=== PATIENT | male | born 1965 | race African-American/Black ===

== ENCOUNTER 2017-08-16 10:45 | Day surgery (SDC) | payer OTHER ==
[~2017-08-16 10:45] MED LIST: Lactated Ringers 1,000 ML IV SCH; Lidocaine 2% 5 ML SDV ONE; Propofol 200 MG/20 ML SDV ONE; fentaNYL 100 MCG/2 ML SDV ONE
--- NOTE | 2017-08-16 11:12 | PCM.PREANE ---
Preanesthetic Assessment - Anesthesia/Transfusion/Family Hx Anesthesia History: Prior Anesthesia Without Reaction Family History of Anesthesia Reaction: No Transfusion History: No Prior Transfusion(s) Intubation History: Unknown - Review of Systems General: No Symptoms Pulmonary: No Symptoms Cardiovascular: No Symptoms Gastrointestinal: Abdominal Pain Neurological: No Symptoms Other: Reports: None - Physical Assessment Height: 1.68 m Weight: 92.986 kg ASA Class: 3 Mental Status: Alert & Oriented x3 Airway Class: Mallampati = 2 Dentition: Reports: Normal Dentition, Missing Tooth/Teeth (4-5 teeth) Thyro-Mental Finger Breadths: 3 Mouth Opening Finger Breadths: 3 ROM/Head Extension: Full Lungs: Clear to Auscultation, Normal Respiratory Effort Cardiovascular: Regular Rate, Regular Rhythm - Allergies Allergies/Adverse Reactions: Allergies Allergy/AdvReac Type Severity Reaction Status Date / Time No Known Allergies Allergy Verified 08/14/17 11:16 - Blood Blood Available: No - Anesthesia Plan Pre-Op Medication Ordered: None - Acknowledgements Anesthesia Type Planned: MAC Pt an Appropriate Candidate for the Planned Anesthesia: Yes Alternatives and Risks of Anesthesia Discussed w Pt/Guardian: Yes Pt/Guardian Understands and Agrees with Anesthesia Plan: Yes PreAnesthesia Questionnaire - Past Health History Medical/Surgical History: Denies Medical/Surgical History HEENT History: Reports: None Cardiovascular History: Reports: High Cholesterol, Hypertension, Other (See Below) (chest pain on/off at rest) Respiratory History: Reports: None Gastrointestinal History: Reports: None Genitourinary History: Reports: None Musculoskeletal History: Reports: Back Pain, Chronic, Other (See Below) (spinal stenosis, myofascial pain syndrome) Neurological History: Reports: None Psychiatric History: Reports: None Endocrine/Metabolic History: Reports: Diabetes, Type II, Obesity/BMI 30+ Other Endocrine/Metabolic History: type II diabetes, diet well controlled. Hematologic History: Reports: None Immunologic History: Reports: None Oncologic (Cancer) History: Reports: None Dermatologic History: Reports: None - Past Surgical History Head Surgeries/Procedures: Reports: None GI Surgical History: Reports: Colonoscopy, EGD (last year with colonoscopy) Other Musculoskeletal Surgeries/Procedures:: Orif rt. big toe fx. - SUBSTANCE USE Smoking Status *Q: Never Smoker Tobacco Use Within Last Twelve Months: No Second Hand Smoke Exposure: No Recreational Drug Use History: No - HOME MEDS Home Medications: Home Meds amLODIPine [Norvasc] 5 mg PO BEDTIME 12/20/15 [History] Doxycycline Hyclate 100 mg PO BID 08/14/17 [History] - CURRENT (IN HOUSE) MEDS Current Meds: Current Medications Lactated Ringer's (Ringers, Lactated) 1,000 mls @ 125 mls/hr IV ASDIRECTED NURA Discontinued Medications Fentanyl (Sublimaze) Confirm Administered Dose 100 mcg .ROUTE .STK-MED ONE Stop: 08/16/17 10:35 Lidocaine (Xylocaine-Mpf 2%) Confirm Administered Dose 5 ml .ROUTE .STK-MED ONE Stop: 08/16/17 10:35 Propofol (Diprivan 20 Ml) Confirm Administered Dose 400 mg .ROUTE .STK-MED ONE Stop: 08/16/17 10:35
--- NOTE | 2017-08-16 11:50 | PCM.OPNOTE ---
- General Post-Op/Procedure Note Date of Surgery/Procedure: 08/16/17 Operative Procedure(s): egd w bx Findings: see dict [id number] Pre Op Diagnosis: intestinal metaplasia at antrum Post-Op Diagnosis: Same Anesthesia Technique: Moderate Sedation Primary Surgeon: Michael Garcia Pathology: egd bx Complications: None Condition: Good
--- NOTE | 2017-08-16 12:24 | OR ---
SURGEON: Michael Garcia MD DATE OF PROCEDURE: 08/16/2017 PROCEDURE PERFORMED: Esophagogastroduodenoscopy with biopsy. FINDINGS: 1. The patient is easily sedated with DIE OPERATOR and Diprivan. The patient is soundly snoring. 2. The patient's oropharynx is grossly normal in appearance. Proximal esophagus and oropharynx are free of disease. GE junction at 40, demonstrated mild salmon-colored change consistent with moderate amount of acid reflux. No ulcer. No esophagitis observed. No bleeding. Stomach rugae is normal in appearance and antrum was slightly inflamed. Duodenum was grossly normal. Retroflexed back to the stomach to look at the fundus of stomach, and the patient may have a mild degree of hiatal hernia. The stomach has several areas look like it is a healed ulcer. Random biopsy done at antrum as it has intestinal metaplasia on last pathology report and no other biopsy report. Biopsy of the GE junction at 40 and sucked out air while scope pulling out. There was no food, bile, or blood observed during the whole procedure. PROCEDURE IN DETAIL: The patient was taken to the endoscopy room, and with the DIE OPERATOR, Diprivan was administered. A well-lubricated EGD scope was gently inserted through the oropharynx, down the esophagus, passing through the gastroesophageal junction, into the stomach. The mucosa was examined upon the passage. Any etiology will be noted. Once in the stomach, we continued to advance to the distal antrum, passed through the pylorus into the second portion of the duodenum. Again, the mucosa was examined for any abnormality and etiology. The scope was then retrieved back to the stomach and then retroflexed to look at the fundus of the stomach. If a biopsy was indicated, we will biopsy the antrum, body, and gastroesophageal junction. The air will be sucked out while the scope is retrieved to reduce the patient's discomfort. The patient tolerated the procedure well. There were no intraoperative complications. Dr. Garcia was present through the whole procedure. Prior to surgery, a time-out had been called, the patient identified, procedure identified and antibiotic administered. YVROSE / DANIELA /[id number]
[2017-08-16 13:38] VITALS: BP 117/78
== END 2017-08-16 12:30 | disposition home or self-care (01) ==
LOC: MW.SDS 10:45
PROVIDERS: ATTEND Surgery
DX: K29.50 Unspecified chronic gastritis without bleeding (principal); K20.9 Esophagitis, unspecified; I10 Essential (primary) hypertension; G89.29 Other chronic pain; M54.5 Low back pain; K40.90 Unilateral inguinal hernia, without obstruction or gangrene, not specified as recurrent; M47.816 Spondylosis without myelopathy or radiculopathy, lumbar region; M79.1 Myalgia; E11.9 Type 2 diabetes mellitus without complications; E78.00 Pure hypercholesterolemia, unspecified; E66.9 Obesity, unspecified; Z68.33 Body mass index [BMI] 33.0-33.9, adult; Z79.899 Other long term (current) drug therapy; Z98.890 Other specified postprocedural states
CPT/HCPCS: 43239; 82962; 93005; J3010; J7120; 00731; 88305; 88312; J2704

== ENCOUNTER 2018-11-09 12:30 | Emergency (ER) | payer OTHER ==
[2018-11-09] MEDS ORDERED: Aspirin 81 MG Tab.Chew PO ONE (12:37)
[2018-11-09] MEDS ORDERED: Sodium Chloride 0.9% 1,000 ML IV ONE (12:37)
[2018-11-09] MEDS ORDERED: Nitroglycerin 0.4 MG Tab.SL ONE (13:20)
[2018-11-09] MEDS: Nitroglycerin 0.4 MG Tab.SL SL PRN ×3 (13:22→13:33)
--- NOTE | 2018-11-09 13:23 | CR ---
INDICATION: Pain TECHNIQUE: Single view chest. FINDINGS: The lungs are clear. The heart, mediastinum and pulmonary vessels are of normal size. There is no evidence of pleural disease. IMPRESSION: Negative chest. Dictated by Daria Flores MD @ Nov 09 2018 1:22PM Signed by Dr. Daria Flores @ Nov 09 2018 1:22PM
[2018-11-09] MEDS ORDERED: Morphine 2 MG/ML Syringe IVPUSH ONE (13:34)
[2018-11-09 13:41] LABS: CHLORIDE,CL 103 mmol/L (98-107); SODIUM,NA 138 mmol/L (136-148)
[2018-11-09] MEDS ORDERED: Heparin Sodium 5,000 Units/ML Vial IVPUSH ONE (13:57)
[2018-11-09] MEDS ORDERED: Heparin Sod,Pork In 0.45% Nacl 25,000 UNIT/500 ML IV.SOLN IV SCH (14:00)
[2018-11-09] MEDS ORDERED: Nitroglycerin/D5W 25 MG/250 ML BOTTLE IV SCH (14:00)
[2018-11-09] MEDS ORDERED: Heparin Sod,Pork In 0.45% Nacl 25,000 UNIT/500 ML IV.SOLN IV ONE (14:03)
--- NOTE | 2018-11-09 14:05 | EDM.PDOC ---
ED HPI GENERAL MEDICAL PROBLEM - General Chief Complaint: Chest Pain Stated Complaint: SPOKE TO THE NURSE Time Seen by Provider: 11/09/18 12:47 Source of Information: Reports: Patient History Limitations: Reports: No Limitations - History of Present Illness INITIAL COMMENTS - FREE TEXT/NARRATIVE: HISTORY AND PHYSICAL: History of present illness: Patient is a 53-year-old male presents to the ED today with concern of 10 out of 10 midsternal chest pain. Patient describes the sensation as "needle". Patient states over the past 4 days he has had these symptoms off-and-on but they have generally lasted less than than [address] Patient states today that for one hour now he has had the pain and has not gone away. Patient states starting today the pain has gone into his right shoulder. Patient has not taking any medication at home. Patient does have a history of untreated hypertension, hyperlipidemia, and diabetes. Patient states he is not taking any medications for his symptoms. Patient denies fever, chills shortness of breath, or cough. Denies headache, neck stiff ness, change in vision, syncope, or near syncope. Denies nausea, vomiting, abdominal pain, diarrhea, constipation, or dysuria. Has not noted any blood in urine or stool. Patient has been eating and drinking appropriately. Patient has a history of untreated T2DM, hypertension, hyperlipidemia. Review of systems: As per history of present illness and below otherwise all systems reviewed and negative. Past medical history: As per history of present illness and as reviewed below otherwise noncontributory. Surgical history: As per history of present illness and as reviewed below otherwise noncontributory. Social history: See social history for further information Family history: As per history of present illness and as reviewed below otherwise noncontributory. Physical exam: General: Patient is alert, oriented, and in no acute distress. Patient sitting comfortably on exam table. HEENT: Atraumatic, normocephalic, pupils equal and reactive bilaterally, negative for conjunctival pallor or scleral icterus, mucous membranes moist, TMs normal bilaterally, throat clear, neck supple, nontender, trachea midline. No drooling or trismus noted. No meningeal signs. No hot potato voice noted. Lungs: Clear to auscultation, breath sounds equal bilaterally, chest nontender. Heart: S1S2, regular rate and rhythm without overt murmur Abdomen: Obese, soft, nondistended, nontender. Negative for masses or hepatosplenomegaly. Negative for costovertebral tenderness. Pelvis: Stable nontender. Genitourinary: Deferred. Rectal: Deferred. Skin: Intact, warm, dry. No lesions or rashes noted. Extremities: Atraumatic, negative for cords or calf pain. Neurovascular unremarkable. Neuro: Awake, alert, oriented. Cranial nerves II through XII unremarkable. Cerebellum unremarkable. Motor and sensory unremarkable throughout. Exam nonfocal. Notes: On exam, patient does appear to be quite comfortable. EKG performed upon arrival. Will do labs and imaging today. Nitro was given with decrease of symptoms. Morphine given with improvement of symptoms. Repeat EKG performed. Both EKG's were reviewed by myself as well as Dr. Gloria. Pending labs and imaging. 13:45: Positive troponin critical value called to nursing staff who relayed information to me. Called [facility] for transfer. There is no ground transfer available at this time. Flight transfer arranged. 13:55: Spoke to Dr. Rice who is accepting of patient transfer. Flight team arrived and patient transferred to [facility]. Diagnostics: CBC, CMP, UA, EKG, troponin, chest x-ray, lipase Therapeutics: Saline, nitroglycerin, aspirin, morphine, heparin Impression: Acute coronary syndrome Plan: 1. Transfer to [facility] to Dr. Rice via flight. Definitive disposition and diagnosis as appropriate pending reevaluation and review of above. Chest Pain Score (Numeric/FACES): 10 - Related Data Allergies Allergy/AdvReac Type Severity Reaction Status Date / Time No Known Allergies Allergy Verified 11/09/18 12:36 Home Meds: Home Meds . [No Known Home Meds] 11/09/18 [History] Past Medical History - Past Health History Medical/Surgical History: Denies Medical/Surgical History HEENT History: Reports: None Cardiovascular History: Reports: High Cholesterol, Hypertension, Other (See Below) Respiratory History: Reports: None Gastrointestinal History: Reports: None Genitourinary History: Reports: None Musculoskeletal History: Reports: Back Pain, Chronic, Other (See Below) Neurological History: Reports: None Psychiatric History: Reports: None Endocrine/Metabolic History: Reports: Diabetes, Type II, Obesity/BMI 30+ Other Endocrine/Metabolic History: type II diabetes, diet well controlled. Hematologic History: Reports: None Immunologic History: Reports: None Oncologic (Cancer) History: Reports: None Dermatologic History: Reports: None - Past Surgical History Head Surgeries/Procedures: Reports: None GI Surgical History: Reports: Colonoscopy, EGD Other Musculoskeletal Surgeries/Procedures:: Orif rt. big toe fx. Social & Family History - Family History Family Medical History: Noncontributory - Tobacco Use Smoking Status *Q: Never Smoker - Recreational Drug Use Recreational Drug Use: No ED ROS GENERAL - Review of Systems Review Of Systems: ROS reveals no pertinent complaints other than HPI. ED EXAM, GENERAL - Physical Exam Exam: See Below (see dictation) Course - Vital Signs Last Recorded V/S: Last Vital Signs Temp 36.3 C 11/09/18 12:34 Pulse 98 11/09/18 13:55 Resp 18 11/09/18 13:55 BP 148/91 H 11/09/18 13:55 Pulse Ox 96 11/09/18 13:55 - Orders/Labs/Meds Orders: Active Orders 24 hr Category Date Time Status EKG Documentation Completion [RC] STAT Care 11/09/18 12:37 Active UA RFX OSWALDO AND CULT IF INDIC [URIN] Stat Lab 11/09/18 12:37 Ordered Heparin Sod,Pork In 0.45% Nacl [Heparin-1/2Ns 25,000 Med 11/09/18 14:00 Active Units/500] 25,000 unit in 500 ml IV TITRATE Nitroglycerin/D5W [Nitroglycerin 25 MG/D5W 250 ML] 250 Med 11/09/18 14:00 Ordered ml IV TITRATE Medication Orders Nitroglycerin/Dextrose (Nitroglycerin 25 Mg/D5w 250 Ml) 250 mls @ 3 mls/hr IV TITRATE NURA Heparin Sodium/Sodium Chloride (Heparin-1/2ns 25,000 Units/500) 25,000 unit in 500 mls @ 22.861 mls/hr IV TITRATE NURA; Protocol Labs: Laboratory Tests 11/09/18 11/09/18 Range/Units 13:00 13:00 WBC 6.44 (4.0-11.0) K/uL RBC 5.17 (4.50-5.90) M/uL Hgb 15.3 (13.0-17.0) g/dL Hct 44.0 (38.0-50.0) % MCV 85.1 (80.0-98.0) fL MCH 29.6 (27.0-32.0) pg MCHC 34.8 (31.0-37.0) g/dL RDW Std Deviation 44.2 (28.0-62.0) fl RDW Coeff of Lona 14 (11.0-15.0) % Plt Count 239 (150-400) K/uL MPV 9.80 (7.40-12.00) fL Neut % (Auto) 75.0 (48.0-80.0) % Lymph % (Auto) 18.8 (16.0-40.0) % [place] % (Auto) 5.7 (0.0-15.0) % Eos % (Auto) 0.3 (0.0-7.0) % Baso % (Auto) 0.2 (0.0-1.5) % Neut # (Auto) 4.8 (1.4-5.7) K/uL Lymph # (Auto) 1.2 (0.6-2.4) K/uL [place] # (Auto) 0.4 (0.0-0.8) K/uL Eos # (Auto) 0.0 (0.0-0.7) K/uL Baso # (Auto) 0.0 (0.0-0.1) K/uL Nucleated RBC % 0.0 /100WBC Nucleated RBCs # 0 K/uL Sodium 138 (136-148) mmol/L Potassium 4.0 (3.5-5.1) mmol/L Chloride 103 (98-107) mmol/L Carbon Dioxide 25.1 (21.0-32.0) mmol/L BUN 11 (7.0-18.0) mg/dL Creatinine 1.3 (0.8-1.3) mg/dL Est Cr Clr Drug Dosing 55.03 mL/min Estimated GFR (MDRD) > 60.0 ml/min Glucose 223 H (74-106) mg/dL Calcium 8.2 L (8.5-10.1) mg/dL Total Bilirubin 0.7 (0.2-1.0) mg/dL AST 20 (15-37) IU/L ALT 29 (14-63) IU/L Alkaline Phosphatase 55 (46-116) U/L Troponin I 0.171 H* (0.000-0.056) ng/mL Total Protein 7.6 (6.4-8.2) g/dL Albumin 3.7 (3.4-5.0) g/dL Globulin 3.9 (2.6-4.0) g/dL Albumin/Globulin Ratio 0.9 (0.9-1.6) Lipase 288 (73-393) U/L Meds: Medications Generic Name Dose Route Start Last Admin Trade Name Freq PRN Reason Stop Dose Admin Nitroglycerin/Dextrose 250 mls @ 3 mls/hr 11/09/18 14:00 Nitroglycerin 25 Mg/D5w 250 Ml IV TITRATE NURA 5 MCG/MIN Heparin Sodium/Sodium Chloride 25,000 unit in 500 mls @ 22.861 mls/hr 14:00 Heparin-1/2ns 25,000 Units/500 IV TITRATE NURA Protocol 12 UNITS/KG/HR Discontinued Medications Generic Name Dose Route Start Last Admin Trade Name Aurora PRN Reason Stop Dose Admin Aspirin 324 mg 11/09/18 12:37 11/09/18 12:55 Aspirin PO 11/09/18 12:38 324 mg ONETIME ONE Administration Heparin Sodium (Porcine) 5,000 units 11/09/18 13:57 Heparin Sodium IVPUSH 11/09/18 13:58 ONETIME ONE Sodium Chloride 1,000 mls @ 999 mls/hr 11/09/18 12:37 11/09/18 13:04 Normal Saline IV 11/09/18 13:37 999 mls/hr STAT ONE Administration Morphine Sulfate 2 mg 11/09/18 13:34 11/09/18 13:46 Morphine IVPUSH 11/09/18 13:35 2 mg ONETIME ONE Administration Nitroglycerin 0.4 mg 11/09/18 13:15 11/09/18 13:33 Nitrostat SL 0.4 mg Q5M PRN Administration Chest Pain Nitroglycerin Confirm 11/09/18 13:20 11/09/18 13:26 Nitrostat Administered 11/09/18 13:21 Not Given Dose 0.4 mg .ROUTE .STK-MED ONE Departure - Departure Time of Disposition: 14:12 Disposition: DC/Tfer to Acute Hospital 02 Reason for Transfer *Q: Primary PCI Indicated Condition: Fair Clinical Impression: Acute coronary syndrome Referrals: PCP,Unknown [Primary Care Provider] - Forms: ED Department Discharge - My Orders Last 24 Hours: My Active Orders 11/09/18 14:00 Heparin Sod,Pork In 0.45% Nacl [Heparin-1/2Ns 25,000 Units/500] 25,000 unit in 500 ml IV TITRATE Nitroglycerin/D5W [Nitroglycerin 25 MG/D5W 250 ML] 250 ml IV TITRATE - Assessment/Plan Last 24 Hours: My Active Orders 11/09/18 14:00 Heparin Sod,Pork In 0.45% Nacl [Heparin-1/2Ns 25,000 Units/500] 25,000 unit in 500 ml IV TITRATE Nitroglycerin/D5W [Nitroglycerin 25 MG/D5W 250 ML] 250 ml IV TITRATE
[2018-11-09] MEDS ORDERED: Nitroglycerin/D5W 25 MG/250 ML BOTTLE ONE (14:11)
[2018-11-09 18:58] VITALS: BP 159/75
== END 2018-11-09 14:55 ==
LOC: MW.ED 12:30
DX: I24.9 Acute ischemic heart disease, unspecified (principal); I10 Essential (primary) hypertension; E11.9 Type 2 diabetes mellitus without complications
CPT/HCPCS: 71045; 80053; 83690; 84484; 85025; 93005; 96361; 96365; 96368; 96375; 96376; 99285; A9270; J1644; J2270; J3490; J7040; 99284

== ENCOUNTER 2018-12-24 15:17 | Emergency (ER) | payer OTHER ==
--- NOTE | 2018-12-24 15:44 | EDM.PDOC ---
ED HPI GENERAL MEDICAL PROBLEM - General Chief Complaint: Chest Pain Stated Complaint: CHEST PAINS Time Seen by Provider: 12/24/18 15:20 Source of Information: Reports: Patient History Limitations: Reports: No Limitations - History of Present Illness INITIAL COMMENTS - FREE TEXT/NARRATIVE: Presents reporting left precordial chest pain started 1 hour prior to arrival. No radiation of the pain to the neck back shoulder or arm. At the time of my examination the patient had no pain. No associated nausea, shortness breath, sweating or lightheadedness. The patient states that last month he was here for chest pain and ended up in [place] with 2 stents placed. He has a history of hypertension, diabetes, dyslipidemia and obesity. He did not take any nitroglycerin or other medications for his chest pain. - Related Data Allergies Allergy/AdvReac Type Severity Reaction Status Date / Time No Known Allergies Allergy Verified 12/24/18 15:19 Home Meds: Home Meds Clopidogrel [Plavix] 12/24/18 [History] Isosorbide Dinitrate mg PO DAILY 12/24/18 [History] Lisinopril [Zestril] 12/24/18 [History] Metoprolol Tartrate [Lopressor] 12/24/18 [History] atorvaSTATin [Lipitor] 12/24/18 [History] metFORMIN [Glucophage XR] 12/24/18 [History] Past Medical History - Past Health History Medical/Surgical History: Denies Medical/Surgical History HEENT History: Reports: None Cardiovascular History: Reports: High Cholesterol, Hypertension, Stents, Other ( See Below) Respiratory History: Reports: None Gastrointestinal History: Reports: None Genitourinary History: Reports: None Musculoskeletal History: Reports: Back Pain, Chronic, Other (See Below) Neurological History: Reports: None Psychiatric History: Reports: None Endocrine/Metabolic History: Reports: Diabetes, Type II, Obesity/BMI 30+ Other Endocrine/Metabolic History: type II diabetes, diet well controlled. Hematologic History: Reports: None Immunologic History: Reports: None Oncologic (Cancer) History: Reports: None Dermatologic History: Reports: None - Past Surgical History Head Surgeries/Procedures: Reports: None GI Surgical History: Reports: Colonoscopy, EGD Other Musculoskeletal Surgeries/Procedures:: Orif rt. big toe fx. Social & Family History - Family History Family Medical History: Noncontributory - Tobacco Use Smoking Status *Q: Never Smoker - Caffeine Use Caffeine Use: Reports: None - Recreational Drug Use Recreational Drug Use: No ED ROS GENERAL - Review of Systems Review Of Systems: ROS reveals no pertinent complaints other than HPI. ED EXAM, GENERAL - Physical Exam Exam: See Below Exam Limited By: No Limitations General Appearance: Alert, No Apparent Distress Ears: Normal External Exam Nose: Normal Inspection Throat/Mouth: Normal Inspection Head: Atraumatic, Normocephalic Neck: Normal Inspection Respiratory/Chest: No Respiratory Distress, Lungs Clear, Normal Breath Sounds Cardiovascular: Normal Peripheral Pulses, Regular Rate, Rhythm, No Edema, No Murmur Peripheral Pulses: 3+: Radial (L), Radial (R), Posterior Tibial (L), Posterior Tibial (R), Dorsalis Pedis (L), Dorsalis Pedis (R) GI/Abdominal: Normal Bowel Sounds, Soft, Non-Tender, No Distention Back Exam: Normal Inspection, Full Range of Motion Extremities: Normal Inspection, Normal Range of Motion Neurological: Alert, Oriented, Normal Cognition Psychiatric: Normal Affect, Normal Mood Skin Exam: Warm, Dry, Intact, Normal Color, No Rash Lymphatic: No Adenopathy Course - Vital Signs Last Recorded V/S: Last Vital Signs Temp 36.4 C 12/24/18 15:23 Pulse 63 12/24/18 15:23 Resp 16 12/24/18 15:23 BP 153/78 H 12/24/18 15:23 Pulse Ox 94 L 12/24/18 15:23 - Orders/Labs/Meds Labs: Laboratory Tests 12/24/18 12/24/18 Range/Units 15:40 15:40 WBC 5.75 (4.0-11.0) K/uL RBC 4.85 (4.50-5.90) M/uL Hgb 14.2 (13.0-17.0) g/dL Hct 41.7 (38.0-50.0) % MCV 86.0 (80.0-98.0) fL MCH 29.3 (27.0-32.0) pg MCHC 34.1 (31.0-37.0) g/dL RDW Std Deviation 43.5 (28.0-62.0) fl RDW Coeff of Lona 14 (11.0-15.0) % Plt Count 213 (150-400) K/uL MPV 10.70 (7.40-12.00) fL Add Manual Diff YES Neutrophils % (Manual) 46 L (48.0-80.0) % Lymphocytes % (Manual) 32 (16.0-40.0) % Monocytes % (Manual) 18 H (0.0-15.0) % Eosinophils % (Manual) 3 (0.0-7.0) % Basophils % (Manual) 1 (0.0-1.5) % Nucleated RBC % 0.0 /100WBC Absolute Seg Neuts 2.6 (1.4-5.7) Lymphocytes # (Manual) 1.8 (0.6-2.4) Monocytes # (Manual) 1.0 H (0.0-0.8) Eosinophils # (Manual) 0.2 (0.0-0.7) Basophils # (Manual) 0.1 (0.0-0.1) Nucleated RBCs # 0 K/uL Reactive Lymphocytes FEW Sodium 138 (136-148) mmol/L Potassium 4.2 (3.5-5.1) mmol/L Chloride 103 (98-107) mmol/L Carbon Dioxide 27.4 (21.0-32.0) mmol/L BUN 12 (7.0-18.0) mg/dL Creatinine 0.9 (0.8-1.3) mg/dL Est Cr Clr Drug Dosing 79.48 mL/min Estimated GFR (MDRD) > 60.0 ml/min Glucose 99 (74-106) mg/dL Calcium 8.9 (8.5-10.1) mg/dL Total Bilirubin 0.5 (0.2-1.0) mg/dL AST 17 (15-37) IU/L ALT 26 (14-63) IU/L Alkaline Phosphatase 43 L (46-116) U/L Troponin I < 0.050 (0.000-0.056) ng/mL Total Protein 7.5 (6.4-8.2) g/dL Albumin 4.0 (3.4-5.0) g/dL Globulin 3.5 (2.6-4.0) g/dL Albumin/Globulin Ratio 1.1 (0.9-1.6) - Re-Assessments/Exams Free Text/Narrative Re-Assessment/Exam: 12/24/18 16:55 Discussion with the patient. He states he just came here to get checked out, he does not want to be admitted. He has cardiac rehabilitation tomorrow. He he doesn't know his medications but he states he didn't not receive any medication put under his tongue that he knows of. His regular medications he takes every morning. He has no chest pain since being in the ER. Departure - Departure Time of Disposition: 16:57 Disposition: Home, Self-Care 01 Condition: Good Clinical Impression: Angina pectoris Referrals: [facility] [Outside] Melia Shah PA [[facility]] - Forms: ED Department Discharge Additional Instructions: 1. Follow-up with your primary provider. 2. Return promptly for chest pain, shortness of breath, sweating or nausea.
[2018-12-24 16:12] LABS: CHLORIDE,CL 103 mmol/L (98-107); SODIUM,NA 138 mmol/L (136-148)
[2018-12-24 17:24] VITALS: BP 134/77
== END 2018-12-24 17:12 | disposition home or self-care (01) ==
LOC: MW.ED 15:17
DX: I20.9 Angina pectoris, unspecified (principal); E78.00 Pure hypercholesterolemia, unspecified; I10 Essential (primary) hypertension; E11.9 Type 2 diabetes mellitus without complications; Z79.01 Long term (current) use of anticoagulants; Z79.899 Other long term (current) drug therapy; Z79.84 Long term (current) use of oral hypoglycemic drugs
CPT/HCPCS: 36415; 80053; 84484; 85025; 93005; 99283; 99285-25

== ENCOUNTER 2019-02-16 19:53 | Observation (INO) | payer OTHER ==
[2019-02-16] MEDS ORDERED: Sodium Chloride 0.9% 10 ML Syringe FLUSH PRN (19:54)
[2019-02-16] MEDS ORDERED: Sodium Chloride 0.9% 2.5 ML Syringe FLUSH PRN (19:54)
--- NOTE | 2019-02-16 20:06 | EDM.PDOC ---
ED HPI GENERAL MEDICAL PROBLEM - General Chief Complaint: Chest Pain Stated Complaint: NURSE SPOKE TO PT Time Seen by Provider: 02/16/19 20:04 Source of Information: Reports: Patient History Limitations: Reports: No Limitations - History of Present Illness INITIAL COMMENTS - FREE TEXT/NARRATIVE: HISTORY AND PHYSICAL: History of present illness: Patient is a 54-year-old male who presents to the emergency room with complaints of right-sided chest pain. Patient reports that he did have an SD October 2018 which she was transferred to [place] in [place]. Did have stent placement. Has been doing cardiac rehabilitation at our facility and has seen our debt collection specialist. He states he has several medications at home and believes he has nitroglycerin available to him, although did not take this prior to arrival. Patient denies any fever, chills, headache, change in vision, syncope or near syncope. Denies any diaphoresis, back pain, shortness of breath or cough. Denies any abdominal pain, nausea, vomiting, diarrhea, constipation or dysuria. Has not noted any blood in urine or stool. Patient has been eating and drinking appropriately. Review of systems: As per history of present illness and below otherwise all systems reviewed and negative. Past medical history: As per history of present illness and as reviewed below otherwise noncontributory. Surgical history: As per history of present illness and as reviewed below otherwise noncontributory. Social history: See social history for further information Family history: As per history of present illness and as reviewed below otherwise noncontributory. Physical exam: General: Well-developed and well-nourished 54-year-old -[place] male. Alert and oriented. Nontoxic appearing and in no acute distress. HEENT: Atraumatic, normocephalic, pupils equal and reactive bilaterally, negative for conjunctival pallor or scleral icterus, mucous membranes moist, trachea midline. No drooling or trismus noted. No meningeal signs. No hot potato voice noted. Lungs: Clear to auscultation, breath sounds equal bilaterally, chest nontender. Nonreproducible. Heart: S1S2, regular rate and rhythm without overt murmur Abdomen: Soft, nondistended, nontender. Negative for masses or hepatosplenomegaly. Negative for costovertebral tenderness. Skin: Intact, warm, dry. No lesions or rashes noted. Extremities: Atraumatic, moves all extremities per self without difficulty or deficits, negative for cords or calf pain. Neurovascular unremarkable. Neuro: Awake, alert, oriented. Cranial nerves II through XII unremarkable. Cerebellum unremarkable. Motor and sensory unremarkable throughout. Exam nonfocal. Notes: He had 324 mg aspirin prior to arrival. Is on Plavix. EKG that was done today was compared to 12/24/18, no changes. Lab work is pending. Lab work is unremarkable. Patient's vital signs are stable. Currently pain- free. Dr Luke was consulted on this case. He is agreeable to accepting this patient for further observation and management. Patient is aware and agreeable to plan of care. 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 Chest Pain Score (Numeric/FACES): 10 - Related Data Allergies Allergy/AdvReac Type Severity Reaction Status Date / Time No Known Allergies Allergy Verified 02/16/19 20:41 Home Meds: Home Meds Clopidogrel [Plavix] 12/24/18 [History] Isosorbide Dinitrate mg PO DAILY 12/24/18 [History] Lisinopril [Zestril] 12/24/18 [History] Metoprolol Tartrate [Lopressor] 25 mg PO BID 12/24/18 [History] atorvaSTATin [Lipitor] 80 mg PO DAILY 12/24/18 [History] metFORMIN [Glucophage XR] 1,000 mg PO BID 12/24/18 [History] Past Medical History - Past Health History Medical/Surgical History: Denies Medical/Surgical History HEENT History: Reports: None Cardiovascular History: Reports: High Cholesterol, Hypertension, Stents, Other ( See Below) Respiratory History: Reports: None Gastrointestinal History: Reports: None Genitourinary History: Reports: None Musculoskeletal History: Reports: Back Pain, Chronic, Other (See Below) Neurological History: Reports: None Psychiatric History: Reports: None Endocrine/Metabolic History: Reports: Diabetes, Type II, Obesity/BMI 30+ Other Endocrine/Metabolic History: type II diabetes, diet well controlled. Hematologic History: Reports: None Immunologic History: Reports: None Oncologic (Cancer) History: Reports: None Dermatologic History: Reports: None - Past Surgical History Head Surgeries/Procedures: Reports: None GI Surgical History: Reports: Colonoscopy, EGD Other Musculoskeletal Surgeries/Procedures:: Orif rt. big toe fx. Social & Family History - Family History Family Medical History: Noncontributory - Caffeine Use Caffeine Use: Reports: None ED ROS GENERAL - Review of Systems Review Of Systems: ROS reveals no pertinent complaints other than HPI. ED EXAM, GENERAL - Physical Exam Exam: See Below (See dictation) Course - Vital Signs Last Recorded V/S: Last Vital Signs Temp Pulse 75 02/16/19 20:34 Resp 14 02/16/19 20:34 BP 142/84 H 02/16/19 20:42 Pulse Ox 95 02/16/19 20:34 - Orders/Labs/Meds Orders: Active Orders 24 hr Category Date Time Status EKG Documentation Completion [RC] STAT Care 02/16/19 19:54 Active Chest 1V Frontal [CR] Stat Exams 02/16/19 19:54 Taken Sodium Chloride 0.9% [Saline Flush] Med 02/16/19 19:54 Active 10 ml FLUSH ASDIRECTED PRN Sodium Chloride 0.9% [Saline Flush] Med 02/16/19 19:54 Active 2.5 ml FLUSH ASDIRECTED PRN Saline Lock Insert [OM.PC] Stat Oth 02/16/19 19:54 Ordered Medication Orders Sodium Chloride (Saline Flush) 10 ml FLUSH ASDIRECTED PRN PRN Reason: Keep Vein Open Last Admin: 02/16/19 20:35 Dose: 10 ml Sodium Chloride (Saline Flush) 2.5 ml FLUSH ASDIRECTED PRN PRN Reason: Keep Vein Open Last Admin: 02/16/19 20:35 Dose: 2.5 ml Labs: Laboratory Tests 02/16/19 02/16/19 Range/Units 20:06 20:06 WBC 6.75 (4.0-11.0) K/uL RBC 5.09 (4.50-5.90) M/uL Hgb 14.9 (13.0-17.0) g/dL Hct 44.0 (38.0-50.0) % MCV 86.4 (80.0-98.0) fL MCH 29.3 (27.0-32.0) pg MCHC 33.9 (31.0-37.0) g/dL RDW Std Deviation 43.4 (28.0-62.0) fl RDW Coeff of Lona 14 (11.0-15.0) % Plt Count 199 (150-400) K/uL MPV 10.40 (7.40-12.00) fL Neut % (Auto) 55.1 (48.0-80.0) % Lymph % (Auto) 34.2 (16.0-40.0) % [place] % (Auto) 9.6 (0.0-15.0) % Eos % (Auto) 1.0 (0.0-7.0) % Baso % (Auto) 0.1 (0.0-1.5) % Neut # (Auto) 3.7 (1.4-5.7) K/uL Lymph # (Auto) 2.3 (0.6-2.4) K/uL [place] # (Auto) 0.7 (0.0-0.8) K/uL Eos # (Auto) 0.1 (0.0-0.7) K/uL Baso # (Auto) 0.0 (0.0-0.1) K/uL Nucleated RBC % 0.0 /100WBC Nucleated RBCs # 0 K/uL Sodium 140 (136-148) mmol/L Potassium 4.7 (3.5-5.1) mmol/L Chloride 102 (98-107) mmol/L Carbon Dioxide 28.2 (21.0-32.0) mmol/L BUN 17 (7.0-18.0) mg/dL Creatinine 1.1 (0.8-1.3) mg/dL Est Cr Clr Drug Dosing TNP Estimated GFR (MDRD) > 60.0 ml/min Glucose 137 H (74-106) mg/dL Calcium 9.1 (8.5-10.1) mg/dL Total Bilirubin 0.9 (0.2-1.0) mg/dL AST 30 (15-37) IU/L ALT 34 (14-63) IU/L Alkaline Phosphatase 44 L (46-116) U/L Troponin I < 0.050 (0.000-0.056) ng/mL Total Protein 7.9 (6.4-8.2) g/dL Albumin 4.4 (3.4-5.0) g/dL Globulin 3.5 (2.6-4.0) g/dL Albumin/Globulin Ratio 1.3 (0.9-1.6) Meds: Medications Generic Name Dose Route Start Last Admin Trade Name Aurora PRN Reason Stop Dose Admin Sodium Chloride 10 ml 02/16/19 19:54 02/16/19 20:35 Saline Flush FLUSH 10 ml ASDIRECTED PRN Administration Keep Vein Open Sodium Chloride 2.5 ml 02/16/19 19:54 02/16/19 20:35 Saline Flush FLUSH 2.5 ml ASDIRECTED PRN Administration Keep Vein Open Discontinued Medications Generic Name Dose Route Start Last Admin Trade Name Aurora PRN Reason Stop Dose Admin Nitroglycerin 0.4 mg 02/16/19 20:06 02/16/19 20:42 Nitrostat SL 0.4 mg Q5M PRN Administration Chest Pain Departure - Departure Time of Disposition: 20:51 Disposition: Refer to Observation Clinical Impression: Chest pain, rule out acute myocardial infarction Forms: ED Department Discharge - My Orders Last 24 Hours: My Active Orders 02/16/19 19:54 EKG Documentation Completion [RC] STAT Chest 1V Frontal [CR] Stat Sodium Chloride 0.9% [Saline Flush] 10 ml FLUSH ASDIRECTED PRN Sodium Chloride 0.9% [Saline Flush] 2.5 ml FLUSH ASDIRECTED PRN Saline Lock Insert [OM.PC] Stat - Assessment/Plan Last 24 Hours: My Active Orders 02/16/19 19:54 EKG Documentation Completion [RC] STAT Chest 1V Frontal [CR] Stat Sodium Chloride 0.9% [Saline Flush] 10 ml FLUSH ASDIRECTED PRN Sodium Chloride 0.9% [Saline Flush] 2.5 ml FLUSH ASDIRECTED PRN Saline Lock Insert [OM.PC] Stat
[2019-02-16] MEDS: Nitroglycerin 0.4 MG Tab.SL SL PRN ×3 (20:29→20:42)
[2019-02-16 20:33] LABS: CHLORIDE,CL 102 mmol/L (98-107); SODIUM,NA 140 mmol/L (136-148)
--- NOTE | 2019-02-16 20:51 | CR ---
INDICATION: Chest pain TECHNIQUE: Chest 1 view. COMPARISON: None FINDINGS: Cardiovascular and mediastinum: Heart size and vasculature are normal in caliber and appearance. Mediastinum is within normal limits. Lungs and pleural space: Lungs are clear. No sign of infiltrate or mass. No sign of pleural effusion. No pneumothorax. Bones and soft tissues: No significant findings. IMPRESSION: Unremarkable chest. Dictated by Varinder Vergara MD @ Feb 16 2019 8:49PM Signed by Dr. Varinder Vergara @ Feb 16 2019 8:50PM
[2019-02-16] MEDS: Morphine 2 MG/ML Syringe IVPUSH ONE ×2 (21:08→21:10)
[2019-02-16] MEDS ORDERED: Acetaminophen 325 MG Tab PO PRN (22:48)
[2019-02-16] MEDS ORDERED: oxyCODONE 5 MG Tab PO PRN (22:49)
--- NOTE | 2019-02-17 06:28 | PCM.HP ---
H&P History of Present Illness - General Date of Service: 02/17/19 Admit Problem/Dx: Admission Diagnosis/Problem Admission Diagnosis/Problem Chest pain, rule out acute myocardial infarction Source of Information: Patient History Limitations: Reports: No Limitations - History of Present Illness Initial Comments - Free Text/Narative: The patient is an otherwise healthy 54-year-old gentleman who had presented to the emergency department late yesterday evening out of concern for right-sided chest pain. The patient reportedly had an myocardial infarction in October 2018 which required transportation and stenting. Patient had been through cardiology and had also been evaluated by staff caterpillar operator. The patient has said that this pain is not similar to his previous [place]. The patient has been compliant with his medications. He is also denied any radiation of the pain. No specific aggravating or relieving factors. He's had no dizziness or lightheadedness or other associated symptoms. The patient has no chest pain at this time. Onset of Symptoms: Reports: Sudden Duration of Symptoms: Reports: Hour(s): Location: Reports: Chest Quality: Reports: Ache, Stabbing Severity: Moderate Improves with: Reports: None Worsens with: Reports: None Associated Symptoms: Reports: No Other Symptoms Chest Pain Score (Numeric/FACES): 0 - Related Data Allergies/Adverse Reactions: Allergies Allergy/AdvReac Type Severity Reaction Status Date / Time No Known Allergies Allergy Verified 02/16/19 20:41 Home Medications: Home Meds Clopidogrel [Plavix] 75 mg PO DAILY 12/24/18 [History] Isosorbide Dinitrate 30 mg PO DAILY 12/24/18 [History] Lisinopril [Zestril] 2.5 mg PO DAILY 12/24/18 [History] Aspirin 81 mg PO DAILY 02/17/19 [History] Blood-Glucose Meter [[employer] Verio] 1 each MC DAILY 02/17/19 [History] Metoprolol Succinate 50 mg PO DAILY 02/17/19 [History] atorvaSTATin [Lipitor] 80 mg PO DAILY 02/17/19 [History] metFORMIN HCl [Metformin HCl] 500 mg PO Q12HR 02/17/19 [History] Past Medical History - Past Health History Medical/Surgical History: Denies Medical/Surgical History HEENT History: Reports: None Cardiovascular History: Reports: High Cholesterol, Hypertension, Stents, Other ( See Below) Respiratory History: Reports: None Gastrointestinal History: Reports: None Genitourinary History: Reports: None Musculoskeletal History: Reports: Back Pain, Chronic, Other (See Below) Neurological History: Reports: None Psychiatric History: Reports: None Endocrine/Metabolic History: Reports: Diabetes, Type II, Obesity/BMI 30+ Other Endocrine/Metabolic History: type II diabetes, diet well controlled. Hematologic History: Reports: None Immunologic History: Reports: None Oncologic (Cancer) History: Reports: None Dermatologic History: Reports: None - Past Surgical History Head Surgeries/Procedures: Reports: None Cardiovascular Surgical History: Reports: Coronary Artery Stent GI Surgical History: Reports: Colonoscopy, EGD Endocrine Surgical History: Reports: None Other Musculoskeletal Surgeries/Procedures:: Orif rt. big toe fx. Social & Family History - Family History Family Medical History: Noncontributory - Tobacco Use Smoking Status *Q: Never Smoker Second Hand Smoke Exposure: No - Caffeine Use Caffeine Use: Reports: Coffee - Recreational Drug Use Recreational Drug Use: No H&P Review of Systems - Review of Systems: Review Of Systems: See Below General: Reports: No Symptoms HEENT: Reports: No Symptoms Pulmonary: Reports: No Symptoms Cardiovascular: Reports: No Symptoms Gastrointestinal: Reports: No Symptoms Genitourinary: Reports: No Symptoms Musculoskeletal: Reports: No Symptoms Skin: Reports: No Symptoms Psychiatric: Reports: No Symptoms Neurological: Reports: No Symptoms Hematologic/Lymphatic: Reports: No Symptoms Immunologic: Reports: No Symptoms Exam - Exam Exam: See Below - Vital Signs Vital Signs: Last Vital Signs Temp 36.2 C 02/17/19 05:00 Pulse 56 L 02/17/19 05:00 Resp 14 02/17/19 05:00 BP 131/76 02/17/19 05:00 Pulse Ox 96 02/17/19 05:00 Weight: 91.762 kg - Exam Quality Assessment: No: Supplemental Oxygen General: Alert, Oriented, Cooperative HEENT: Conjunctiva Clear, EACs Clear, EOMI, Mucosa Moist & [place], Pupils Equal, PERRLA Neck: Supple, Trachea Midline Lungs: Clear to Auscultation, Normal Respiratory Effort Cardiovascular: Regular Rate, Regular Rhythm GI/Abdominal Exam: Normal Bowel Sounds, Soft, Non-Tender, No Distention. No: Guarding, Rigid, Rebound Back Exam: Normal Inspection, Full Range of Motion Extremities: Normal Inspection, Normal Range of Motion, No Pedal Edema Skin: Warm, Dry, Intact Neurological: Cranial Nerves Intact, Normal Gait Neuro Extensive - Mental Status: Alert, Oriented x3 Psychiatric: Alert, Normal Affect, Normal Mood - Patient Data Lab Results Last 24 hrs: Laboratory Results - last 24 hr 02/16/19 02/16/19 02/17/19 Range/Units 20:06 20:06 02:09 WBC 6.75 (4.0-11.0) K/uL RBC 5.09 (4.50-5.90) M/uL Hgb 14.9 (13.0-17.0) g/dL Hct 44.0 (38.0-50.0) % MCV 86.4 (80.0-98.0) fL MCH 29.3 (27.0-32.0) pg MCHC 33.9 (31.0-37.0) g/dL RDW Std Deviation 43.4 (28.0-62.0) fl RDW Coeff of Lona 14 (11.0-15.0) % Plt Count 199 (150-400) K/uL MPV 10.40 (7.40-12.00) fL Neut % (Auto) 55.1 (48.0-80.0) % Lymph % (Auto) 34.2 (16.0-40.0) % [place] % (Auto) 9.6 (0.0-15.0) % Eos % (Auto) 1.0 (0.0-7.0) % Baso % (Auto) 0.1 (0.0-1.5) % Neut # (Auto) 3.7 (1.4-5.7) K/uL Lymph # (Auto) 2.3 (0.6-2.4) K/uL [place] # (Auto) 0.7 (0.0-0.8) K/uL Eos # (Auto) 0.1 (0.0-0.7) K/uL Baso # (Auto) 0.0 (0.0-0.1) K/uL Nucleated RBC % 0.0 /100WBC Nucleated RBCs # 0 K/uL Sodium 140 (136-148) mmol/L Potassium 4.7 (3.5-5.1) mmol/L Chloride 102 (98-107) mmol/L Carbon Dioxide 28.2 (21.0-32.0) mmol/L BUN 17 (7.0-18.0) mg/dL Creatinine 1.1 (0.8-1.3) mg/dL Est Cr Clr Drug Dosing TNP Estimated GFR (MDRD) > 60.0 ml/min Glucose 137 H (74-106) mg/dL Calcium 9.1 (8.5-10.1) mg/dL Total Bilirubin 0.9 (0.2-1.0) mg/dL AST 30 (15-37) IU/L ALT 34 (14-63) IU/L Alkaline Phosphatase 44 L (46-116) U/L Troponin I < 0.050 < 0.050 (0.000-0.056) ng/mL Total Protein 7.9 (6.4-8.2) g/dL Albumin 4.4 (3.4-5.0) g/dL Globulin 3.5 (2.6-4.0) g/dL Albumin/Globulin Ratio 1.3 (0.9-1.6) Result Diagrams: 02/17/19 08:05 02/17/19 08:05 EKG INTERPRETATION EKG Date: 02/18/19 Rhythm: NSR Friona: Normal P-Wave: Present QRS: Normal ST-T: Normal QT: Normal Comparison: No Change - Problem List (1) Chest pain, rule out acute myocardial infarction SNOMED Code(s): 40255494 ICD Code: R07.9 - CHEST PAIN, UNSPECIFIED Status: Resolved Priority: High (2) Coronary artery disease SNOMED Code(s): 78305874 ICD Code: I25.10 - ATHSCL HEART DISEASE OF [place] CORONARY ARTERY W/O ANG PCTRS Status: Chronic Priority: High Qualifiers: Coronary Disease-Associated Artery/Lesion type: [place] artery [place] vs. transplanted heart: [place] heart Associated angina: with other forms of angina Qualified Code(s): I25.118 - Atherosclerotic heart disease of [place] coronary artery with other forms of angina pectoris (3) Right-sided chest wall pain SNOMED Code(s): 860463565, 091453804 ICD Code: R07.89 - OTHER CHEST PAIN Status: Resolved Priority: High Problem List Initiated/Reviewed/Updated: Yes Orders Last 24hrs: Active Orders 24 hr Category Date Time Status Admission Status [Patient Status] [ADT] Stat ADT 02/16/19 20:52 Active Telemetry Monitoring [Cardiac Monitoring] [RC] Q8H Care 02/16/19 22:47 Active ADA Diabetic [[place] [employer] Diet] [DIET Diet 02/17/19 Breakfast Active ] Heart Healthy Diet [DIET] Diet 02/17/19 Breakfast Active BMP [BASIC METABOLIC PANEL,BMP] [CHEM] Routine Lab 02/17/19 05:00 Ordered CBC WITH AUTO DIFF [HEME] Routine Lab 02/17/19 05:00 Ordered TROPONIN I [CHEM] Routine Lab 02/17/19 08:00 Ordered Acetaminophen [Tylenol] Med 02/16/19 22:48 Active 650 mg PO Q6H PRN Sodium Chloride 0.9% [Saline Flush] Med 02/16/19 19:54 Active 10 ml FLUSH ASDIRECTED PRN Sodium Chloride 0.9% [Saline Flush] Med 02/16/19 19:54 Active 2.5 ml FLUSH ASDIRECTED PRN oxyCODONE Med 02/16/19 22:49 Active 5 mg PO Q4H PRN Saline Lock Insert [OM.PC] Stat Oth 02/16/19 19:54 Ordered Medication Orders Acetaminophen (Tylenol) 650 mg PO Q6H PRN PRN Reason: Pain (mild 1-3) Oxycodone HCl (Oxycodone) 5 mg PO Q4H PRN PRN Reason: Pain (moderate 4-6) Sodium Chloride (Saline Flush) 10 ml FLUSH ASDIRECTED PRN PRN Reason: Keep Vein Open Last Admin: 02/16/19 20:35 Dose: 10 ml Sodium Chloride (Saline Flush) 2.5 ml FLUSH ASDIRECTED PRN PRN Reason: Keep Vein Open Last Admin: 02/16/19 20:35 Dose: 2.5 ml Assessment/Plan Comment:: The patient is a 54-year-old gentleman who had presented with right-sided chest pain. This was not similar to his previous myocardial infarction. The patient had 3 separate troponins which are essentially undetectable. His CBC and metabolic panel were also normal. The patient because of his stenting has been recommended to continue with his Plavix as well as his other medications. Patient is also to follow-up with cardiology. The patient is well and he is asymptomatic. He feels like he can go home. The patient has been recommended to continue with his diet as tolerated. He is also to have activity as tolerated. The patient is to follow-up with his primary care physician and caterpillar operator. The patient has been hemodynamically stable and he has been discharged from acute hospitalization with the recommendations listed above. This history and physical should also count as a discharge summary.
[2019-02-17 07:54] VITALS: BP 136/72
[2019-02-17 08:41] LABS: CHLORIDE,CL 102 mmol/L (98-107); SODIUM,NA 140 mmol/L (136-148)
[2019-02-17] MEDS ORDERED: Metoprolol Succinate 50 MG Tab.ER PO SCH (09:00)
[2019-02-17] MEDS ORDERED: atorvaSTATin 40 MG Tab PO SCH (09:00)
[2019-02-17] MEDS ORDERED: Aspirin 81 MG Tab.Chew PO SCH (09:00)
[2019-02-17] MEDS ORDERED: Isosorbide Dinitrate 10 MG Tab PO SCH (09:00)
[2019-02-17] MEDS ORDERED: metFORMIN 500 MG Tab PO SCH (09:00)
[2019-02-17] MEDS ORDERED: Lisinopril 5 MG Tab PO SCH (09:00)
[2019-02-17] MEDS ORDERED: Clopidogrel 75 MG Tab PO SCH (09:00)
== END 2019-02-17 10:05 | disposition home or self-care (01) ==
LOC: MW.ED 19:53 → MW.MS 20:52
PROVIDERS: ADMIT Internal Medicine; ATTEND Internal Medicine
DX: R07.89 Other chest pain (principal); I10 Essential (primary) hypertension; I25.118 Atherosclerotic heart disease of native coronary artery with other forms of angina pectoris; E78.00 Pure hypercholesterolemia, unspecified; E11.9 Type 2 diabetes mellitus without complications; E66.9 Obesity, unspecified; Z95.5 Presence of coronary angioplasty implant and graft; Z79.02 Long term (current) use of antithrombotics/antiplatelets; Z79.899 Other long term (current) drug therapy; Z79.82 Long term (current) use of aspirin; Z79.84 Long term (current) use of oral hypoglycemic drugs; Z68.34 Body mass index [BMI] 34.0-34.9, adult
CPT/HCPCS: 36415; 71045; 80048; 80053; 84484; 85025; 93005; 99285; A9270; G0378; 99284; J2270

== ENCOUNTER 2019-08-07 04:52 | Emergency (ER) | payer OTHER ==
[~2019-08-07 04:52] MED LIST changes: +Furosemide 40 MG/4 ML VIAL IVPUSH SCH; -Lactated Ringers 1,000 ML IV SCH; -Lidocaine 2% 5 ML SDV ONE; +Midazolam 1 MG/ML 2 ML SDV IVPUSH ONE; -Propofol 200 MG/20 ML SDV ONE; +Sodium Chloride 0.9% 1,000 ML IV ONE; -fentaNYL 100 MCG/2 ML SDV ONE
[2019-08-07] MEDS ORDERED: Rocuronium 100 MG/10 ML MDV IVPUSH ONE (04:53)
[2019-08-07] MEDS ORDERED: Etomidate 2 MG/ML 20 ML SDV IVPUSH ONE (04:53)
[2019-08-07] MEDS ORDERED: Succinylcholine 200 MG/10 ML MDV IV ONE (04:53)
[2019-08-07] MEDS ORDERED: Midazolam 1 MG/ML 2 ML SDV ONE (04:54)
[2019-08-07] MEDS ORDERED: Midazolam 1 MG/ML 2 ML SDV IVPUSH ONE (05:00)
--- NOTE | 2019-08-07 05:20 | PCM.PRNOTE ---
- Free Text/Narrative Note: Anes Note I was callled to ER for emergency intubation. This unresponsive patient has an ET tube in place, but it has a failed cuff, and needs to be replaced. Using a blue bougie, I was able to exchange the existing 8.0 tube for another 8.0 tube. The exchange was quick and atraumatic. O2 sats remained over 5% during the tube exchange. New ET tube secured at 21 cm at teeth. BBS checked and equal, however were coarse. Procedure tolerated well. Time with patient [id number] Matthew Hernandez CRNA
--- NOTE | 2019-08-07 05:23 | EDM.PDOC ---
ED HPI GENERAL MEDICAL PROBLEM - General Chief Complaint: Respiratory Problem Stated Complaint: CHEST PAIN Time Seen by Provider: 08/07/19 04:52 Source of Information: Reports: Family History Limitations: Reports: Respiratory Distress - History of Present Illness INITIAL COMMENTS - FREE TEXT/NARRATIVE: 54-year-old gentleman presents the emergency room amatory distress. Patient altered respiratory rate in the 60s O2 saturation in the 50s patient appears acute respiratory arrest. 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 Treatments - Related Data Allergies Allergy/AdvReac Type Severity Reaction Status Date / Time No Known Allergies Allergy Verified 08/07/19 05:14 Home Meds: Home Meds Clopidogrel [Plavix] 75 mg PO DAILY 12/24/18 [History] Isosorbide Dinitrate 30 mg PO DAILY 12/24/18 [History] Lisinopril [Zestril] 2.5 mg PO DAILY 12/24/18 [History] Aspirin 81 mg PO DAILY 02/17/19 [History] Blood-Glucose Meter [[employer] Verio] 1 each MC DAILY 02/17/19 [History] Metoprolol Succinate 50 mg PO DAILY 02/17/19 [History] atorvaSTATin [Lipitor] 80 mg PO DAILY 02/17/19 [History] metFORMIN HCl [Metformin HCl] 500 mg PO Q12HR 02/17/19 [History] Past Medical History - Past Health History Medical/Surgical History: Denies Medical/Surgical History HEENT History: Reports: None Cardiovascular History: Reports: High Cholesterol, Hypertension, Stents, Other ( See Below) Respiratory History: Reports: None Gastrointestinal History: Reports: None Genitourinary History: Reports: None Musculoskeletal History: Reports: Back Pain, Chronic, Other (See Below) Neurological History: Reports: None Psychiatric History: Reports: None Endocrine/Metabolic History: Reports: Diabetes, Type II, Obesity/BMI 30+ Other Endocrine/Metabolic History: type II diabetes, diet well controlled. Hematologic History: Reports: None Immunologic History: Reports: None Oncologic (Cancer) History: Reports: None Dermatologic History: Reports: None - Past Surgical History Head Surgeries/Procedures: Reports: None Cardiovascular Surgical History: Reports: Coronary Artery Stent GI Surgical History: Reports: Colonoscopy, EGD Endocrine Surgical History: Reports: None Other Musculoskeletal Surgeries/Procedures:: Orif rt. big toe fx. Social & Family History - Family History Family Medical History: Noncontributory - Caffeine Use Caffeine Use: Reports: Coffee ED ROS GENERAL - Review of Systems Review Of Systems: Comprehensive ROS is negative, except as noted in HPI. Constitutional: Reports: No Symptoms HEENT: Reports: No Symptoms Respiratory: Reports: Shortness of Breath Cardiovascular: Reports: No Symptoms Endocrine: Reports: No Symptoms GI/Abdominal: Reports: No Symptoms : Reports: No Symptoms Musculoskeletal: Reports: No Symptoms Skin: Reports: No Symptoms Neurological: Reports: No Symptoms Psychiatric: Reports: No Symptoms Hematologic/Lymphatic: Reports: No Symptoms Immunologic: Reports: No Symptoms ED EXAM, GENERAL - Physical Exam Exam: See Below Exam Limited By: Respiratory Distress General Appearance: Severe Distress Eye Exam: Bilateral Eye: PERRL Ears: Normal External Exam Ear Exam: Bilateral Ear: Auricle Normal, Canal Normal Nose: Normal Inspection, Normal Mucosa Throat/Mouth: Normal Inspection, Normal Lips. No: Normal Teeth Head: Atraumatic, Normocephalic Neck: Normal Inspection, Non-Tender Respiratory/Chest: No Respiratory Distress, Lungs Clear, Respiratory Distress, Retractions Cardiovascular: Normal Peripheral Pulses, Regular Rate, Rhythm, No JVD, No Murmur GI/Abdominal: Normal Bowel Sounds, Soft (Male) Exam: Deferred Rectal (Males) Exam: Deferred Back Exam: Normal Inspection, Full Range of Motion Extremities: Normal Inspection, Normal Range of Motion, Non-Tender Neurological: Alert, Oriented, CN II-XII Intact, Normal Cognition, No Motor/ Sensory Deficits Psychiatric: Normal Affect, Normal Mood Skin Exam: Warm, Dry, Intact, Normal Color Lymphatic: No Adenopathy EKG INTERPRETATION Rhythm: NSR QRS: Normal ST-T: Other Comparison: NA - No Prior EKG (Acute EKG changes no signs of MO) Course - Orders/Labs/Meds Meds: Medications Discontinued Medications Generic Name Dose Route Start Last Admin Trade Name Freq PRN Reason Stop Dose Admin Midazolam HCl Confirm 08/07/19 04:54 Versed 1 Mg/Ml Administered 08/07/19 04:55 Dose 4 mg .ROUTE .STK-MED ONE Departure - Departure Time of Disposition: 05:25 Disposition: DC/Tfer to Acute Hospital 02 Preliminary Cause of *Q: Respiratory Failure Condition: Critical Clinical Impression: Respiratory arrest - Discharge Information Referrals: PCP,None [Primary Care Provider] -
[2019-08-07 05:47] LABS: BLOOD UREA NITROGEN,BUN 14 mg/dL (7.0-18.0); CARBON DIOXIDE,CO2 24.1 mmol/L (21.0-32.0); CHLORIDE,CL 102 mmol/L (98-107); GLUCOSE RANDOM 224 mg/dL (74-106); POTASSIUM,K 3.4 mmol/L (3.5-5.1); SODIUM,NA 143 mmol/L (136-148)
--- NOTE | 2019-08-07 06:34 | CR ---
HISTORY: Post intubation. TECHNIQUE: One view of the chest. COMPARISON: No prior. FINDINGS: Endotracheal tube terminates approximately 4.5 cm above the christiano. Nasogastric tube terminates below the diaphragm. Cardiac size within normal limits. No lung consolidation or pulmonary edema. No pneumothorax. No moderate or large pleural effusion. IMPRESSION: 1. Endotracheal tube terminates 4.5 cm above the christiano. 2. Nasogastric tube terminates below the diaphragm. Dictated by Noah Tena MD @ 08/07/2019 6:32:30 AM Dictated by: Noah Tena MD @ 08/07/2019 06:32:34 (Electronically Signed)
[2019-08-07 06:38] VITALS: BP 103/71; PULSE 102
== END 2019-08-07 05:45 ==
LOC: MW.ED 04:52
DX: R09.2 Respiratory arrest (principal); I10 Essential (primary) hypertension; E78.00 Pure hypercholesterolemia, unspecified; E11.9 Type 2 diabetes mellitus without complications; E66.9 Obesity, unspecified; Z79.82 Long term (current) use of aspirin; Z79.84 Long term (current) use of oral hypoglycemic drugs
CPT/HCPCS: 31500; 36415; 36600; 51702; 71045; 80053; 80305; 81001; 82803; 84484; 85025; 85610; 93005; 96361; 96374; 99291; J0330; J1940; J2250; J3490; J7030

== ENCOUNTER 2021-12-26 00:10 | Emergency (ER) | payer OTHER ==
[2021-12-26] MEDS ORDERED: Sodium Chloride 0.9% 2.5 ML Syringe FLUSH PRN (00:56)
[2021-12-26] MEDS ORDERED: Sodium Chloride 0.9% 10 ML Syringe FLUSH PRN (00:56)
[2021-12-26] MEDS ORDERED: methylPREDNISolone Sodium Succinate 125 MG/2 ML SDV IVPUSH ONE (00:56)
[2021-12-26] MEDS ORDERED: diphenhydrAMINE 50 MG/ML SDV IVPUSH ONE (00:56)
[2021-12-26] MEDS ORDERED: Sodium Chloride 0.9% 1,000 ML IV ONE (00:56)
[2021-12-26] MEDS ORDERED: Ketorolac 30 MG/ML SDV IVPUSH ONE (00:58)
[2021-12-26 02:55] LABS: BLOOD UREA NITROGEN,BUN 14 mg/dL (7.0-18.0); CARBON DIOXIDE,CO2 29.1 mmol/L (21.0-32.0); CHLORIDE,CL 100 mmol/L (98-107); GLUCOSE RANDOM 165 mg/dL (74-106); POTASSIUM,K 3.6 mmol/L (3.5-5.1); SODIUM,NA 138 mmol/L (136-148)
[2021-12-26] MEDS ORDERED: Iopamidol 755 MG/ML 500 ML Multipack Bottle IVPUSH ONE (03:30)
[2021-12-26] MEDS ORDERED: ceFAZolin 1 GM in Premix Bag 1 BAG IV STA (04:18)
[2021-12-26 05:05] VITALS: BP 133/71; PULSE 80
== END 2021-12-26 05:05 | disposition home or self-care (01) ==
LOC: MW.ED 00:10
DX: K11.20 Sialoadenitis, unspecified (principal); E78.00 Pure hypercholesterolemia, unspecified; I10 Essential (primary) hypertension; E11.9 Type 2 diabetes mellitus without complications; E66.9 Obesity, unspecified; Z79.02 Long term (current) use of antithrombotics/antiplatelets; Z79.82 Long term (current) use of aspirin; Z79.899 Other long term (current) drug therapy; Z79.84 Long term (current) use of oral hypoglycemic drugs; Z68.35 Body mass index [BMI] 35.0-35.9, adult
CPT/HCPCS: 36415; 70491; 80053; 85025; 96365; 96375; 99284; J0690; J1200; J1885; J2930; J3490; J7030; Q9967

== ENCOUNTER 2022-10-12 14:00 | Emergency (ER) | payer OTHER ==
[2022-10-12] MEDS ORDERED: Aspirin 81 MG Tab.Chew PO ONE (14:18)
[2022-10-12 14:47] LABS: CARBON DIOXIDE,CO2 29.4 mmol/L (21.0-32.0)
[2022-10-12 15:22] VITALS: BP 131/68; PULSE 77
== END 2022-10-12 15:27 | disposition home or self-care (01) ==
LOC: MW.ED 14:00
DX: R07.89 Other chest pain (principal); I25.10 Atherosclerotic heart disease of native coronary artery without angina pectoris; I10 Essential (primary) hypertension; E78.5 Hyperlipidemia, unspecified; E11.9 Type 2 diabetes mellitus without complications; E66.9 Obesity, unspecified; Z68.36 Body mass index [BMI] 36.0-36.9, adult; Z79.02 Long term (current) use of antithrombotics/antiplatelets
CPT/HCPCS: 36415; 71045; 80053; 83690; 83735; 84484; 85025; 85610; 85730; 93005; 99285; A9270; 93010; 99283

== ENCOUNTER 2024-01-30 18:43 | Emergency (ER) | payer OTHER ==
[2024-01-30] MEDS: Sodium Chloride 0.9% 10 ML Syringe FLUSH PRN (19:13)
[2024-01-30] MEDS: Sodium Chloride 0.9% 20 ML SDV IV PRN (19:13)
[2024-01-30] MEDS: Sodium Chloride 0.9% 2.5 ML Syringe FLUSH PRN (19:13)
[2024-01-30 19:32] LABS: BASOPHILS ABSOLUTE AUTO 0.01 K/uL (0.00-0.20); BASOPHILS PERCENT AUTO 0.2 % (0.0-1.0); EOSINOPHILS ABSOLUTE AUTO 0.11 K/uL (0.00-0.45); EOSINOPHILS PERCENT AUTO 2.4 % (0.0-6.0); HEMATOCRIT 40.1 % (42.0-52.0); HEMOGLOBIN 13.3 g/dL (14.0-18.0); IMMATURE GRAN ABSOLUTE AUTO 0.01 K/uL (0.00-0.05); IMMATURE GRAN PERCENT AUTO 0.2 % (0.0-0.4); LYMPHOCYTES PERCENT AUTO 36.6 % (24.0-44.0); MEAN CORPUSCULAR HEMOGLOBIN 28.3 pg (28.0-32.0); MEAN CORPUSCULAR HGB CONC 33.2 g/dL (32.0-36.0); MEAN CORPUSCULAR VOLUME 85.3 fL (83.0-99.0); MEAN PLATELET VOLUME 10.6 fL (9.4-12.4); MONOCYTES ABSOLUTE AUTO 0.65 K/uL (0.00-0.80); NEUTROPHILS ABSOLUTE AUTO 2.17 K/uL (1.80-7.70); NEUTROPHILS PERCENT AUTO 46.6 % (41.0-71.0); PLATELET COUNT,PLT 183 K/uL (150-400); WHITE BLOOD CELL COUNT,WBC 4.65 K/uL (3.9-11.3)
[2024-01-30 19:46] LABS: A/G RATIO 1.3 (0.9-1.6); ALBUMIN 4.1 g/dL (3.4-5.0); BILIRUBIN TOTAL 0.8 mg/dL (0.2-1.0); CALCIUM 8.8 mg/dL (8.5-10.1); CARBON DIOXIDE,CO2 26.1 mmol/L (21.0-32.0); CREATININE 1.2 mg/dL (0.8-1.3); EST CRCL DRUG DOSING (CG) 55.5 mL/min; POTASSIUM,K 4.3 mmol/L (3.5-5.1); PROTEIN TOTAL,TP 7.2 g/dL (6.4-8.2)
[2024-01-30 19:51] LABS: INR 1.1 (0.86-1.11); PTT,PARTIAL THROMBOPLSTIN TIME 26.9 SEC (23.9-30.7)
[2024-01-30] MEDS: Ketorolac 30 MG/ML SDV IVPUSH ONE (19:52)
[2024-01-30 20:26] LABS: MAGNESIUM 1.6 mg/dL (1.8-2.4)
[2024-01-30] MEDS: Sodium Chloride 0.9% 1,000 ML IV ONE (22:09)
[2024-01-30] MEDS: Magnesium Sulfate/Water 2 GM in Premix Bag 1 BAG IV ONE (22:09)
[2024-01-30 23:12] LABS: APPEARANCE,URINE CLEAR; BILIRUBIN,URINE NEGATIVE (NEGATIVE); COLOR,URINE YELLOW; GLUCOSE,URINE NEGATIVE (NEGATIVE); KETONES,URINE NEGATIVE (NEGATIVE); LEUKOCYTE ESTERASE,URINE NEGATIVE (NEGATIVE); NITRITE,URINE NEGATIVE (NEGATIVE); OCCULT BLOOD,URINE SMALL (NEGATIVE); PROTEIN,URINE NEGATIVE (NEGATIVE); UROBILINOGEN,URINE 0.2 EU/dL (<2.0)
[2024-01-30 23:19] LABS: BACTERIA,URINE RARE (NEGATIVE); EPITHELIAL CELLS,URINE NOT SEEN (NONE-FEW); MUCUS,URINE LIGHT (NONE-MOD); WBC,URINE 0-1 (0-5/HPF)
[2024-01-30 23:57] VITALS: BP 126/64; PULSE 61
== END 2024-01-30 23:56 | disposition home or self-care (01) ==
LOC: MW.ED 18:43
DX: M62.82 Rhabdomyolysis (principal); G44.86 Cervicogenic headache; I10 Essential (primary) hypertension; E11.9 Type 2 diabetes mellitus without complications; Z79.899 Other long term (current) drug therapy; Z79.84 Long term (current) use of oral hypoglycemic drugs; Z79.82 Long term (current) use of aspirin
CPT/HCPCS: 36415; 70450; 80053; 81001; 82550; 82947; 83735; 84484; 85025; 85610; 85730; 93005; 96365; 96375; 99285; J1885; J3475; J3490; J7030

== ENCOUNTER 2024-07-02 18:20 | Emergency (ER) | payer OTHER ==
[2024-07-02 19:29] LABS: A/G RATIO 1.1 (0.9-1.6); ALANINE AMINOTRANSFERASE,ALT 46 IU/L (14-63); ALBUMIN 4.3 g/dL (3.4-5.0); ALKALINE PHOSPHATASE 46 U/L (46-116); ASPARTATE AMNIOTRANSFERASE,AST 23 IU/L (15-37); BILIRUBIN TOTAL 0.6 mg/dL (0.2-1.0); BLOOD UREA NITROGEN,BUN 14 mg/dL (7.0-18.0); CALCIUM 9.9 mg/dL (8.5-10.1); CARBON DIOXIDE,CO2 29.7 mmol/L (21.0-32.0); CHLORIDE,CL 104 mmol/L (98-107); CREATININE 1.3 mg/dL (0.8-1.3); GLUCOSE RANDOM 107 mg/dL (74-106); POTASSIUM,K 4.3 mmol/L (3.5-5.1); PROTEIN TOTAL,TP 8.2 g/dL (6.4-8.2); SODIUM,NA 143 mmol/L (136-148)
[2024-07-02 19:30] LABS: ESTIMATED GFR 63 mL/min (>60)
[2024-07-02 19:39] LABS: MAGNESIUM 2.1 mg/dL (1.8-2.4)
[2024-07-02] MEDS: traMADol 50 MG Tab PO STA (20:09)
[2024-07-02 20:25] VITALS: BP 144/79; PULSE 78
== END 2024-07-02 20:16 | disposition home or self-care (01) ==
LOC: MW.ED 18:20
DX: M79.652 Pain in left thigh (principal); M79.651 Pain in right thigh; I10 Essential (primary) hypertension; I25.2 Old myocardial infarction; E11.9 Type 2 diabetes mellitus without complications; Z95.5 Presence of coronary angioplasty implant and graft; Z79.899 Other long term (current) drug therapy; Z79.82 Long term (current) use of aspirin; Z79.84 Long term (current) use of oral hypoglycemic drugs; Z75.8 Other problems related to medical facilities and other health care
CPT/HCPCS: 36415; 80053; 82550; 83735; 99283; A9270